=== PATIENT | male | born 1930 | race Caucasian/White ===

== ENCOUNTER 2018-04-08 16:24 | Inpatient (IN) | payer OTHER ==
[~2018-04-08] VITALS: Ht 177.8 cm; Wt 61.2 kg
[2018-04-08] MEDS ORDERED: EPOE3000 SQ (17:05)
[2018-04-08] MEDS ORDERED: LEVE100S GT (17:05)
[2018-04-08] MEDS ORDERED: HYDR-4077 GT (17:05)
[2018-04-08] MEDS ORDERED: VIT1TABL44 GT (17:05)
[2018-04-08] MEDS ORDERED: BLOO-668 IN (17:05)
[2018-04-08] MEDS ORDERED: SEVE0.8P3 GT (17:05)
[2018-04-08] MEDS ORDERED: CLON0.1T GT (17:05)
[2018-04-08] MEDS ORDERED: AMIN30LI4 GT (17:05)
[2018-04-08] MEDS ORDERED: FERR300L GT (17:05)
[2018-04-08] MEDS ORDERED: LEVO200T8 GT (17:05)
[2018-04-08] MEDS ORDERED: LOSA50TA21 GT (17:05)
[2018-04-08] MEDS ORDERED: OMEP20CA10 GT (17:05)
[2018-04-08] MEDS ORDERED: CARV6.252 GT (17:05)
[2018-04-08] MEDS ORDERED: DOCU50LI GT (17:05)
[2018-04-08] MEDS ORDERED: HYDR10SY16 GT (17:05)
[2018-04-08] MEDS ORDERED: POLY15DR40 EACHEYE (17:05)
[2018-04-08] MEDS ORDERED: INSU100V7 SQ (17:05)
[2018-04-08] MEDS ORDERED: NUT.237L67 GT (17:08)
[2018-04-08] MEDS ORDERED: INSU100V28 SQ (17:08)
[2018-04-08] MEDS ORDERED: IPRA3AMP23 IH ×2 (17:08)
[2018-04-08] MEDS ORDERED: TRAM50TA2 GT (17:10)
[2018-04-08] MEDS ORDERED: ACET650S26 GT (17:10)
[2018-04-08] MEDS ORDERED: ZINC220C8 GT (17:10)
[2018-04-08 17:18] LABS: BASOPHILS % (AUTO) 0.5 % (0.0-2.0); EOSINOPHILS % (AUTO) 16.1 % (0.0-6.0); HEMATOCRIT 40 % (39-51); HEMOGLOBIN 12.7 g/dL (13.5-17.5); LYMPHOCYTES # (AUTO) 0.9 /CMM (0.8-4.8); LYMPHOCYTES % (AUTO) 9.5 % (20.0-44.0); MEAN CORPUSCULAR HEMOGLOBIN 30 PG (26.0-33.0); MEAN CORPUSCULAR HGB CONC 32 g/dl (31.0-36.0); MEAN CORPUSCULAR VOLUME 95 fL (80-96); MONOCYTES # (AUTO) 0.8 /CMM (0.1-1.30); MONOCYTES % (AUTO) 8.3 % (2.0-12.0); NEUTROPHILS # (AUTO) 5.9 /CMM (1.8-8.9); NEUTROPHILS % (AUTO) 65.6 % (43.0-81.0); PLATELET COUNT (AUTO) 243 /CMM (150-450); RDW COEFFICIENT OF VARIATION 17.6 (11.5-15.0); RED BLOOD CELL COUNT(AUTO) 4.22 MIL/uL (4.5-6.0); WHITE BLOOD COUNT (AUTO) 9.1 K/uL (4.3-11.0)
[2018-04-08 17:28] LABS: CALCIUM, SERUM 8.5 mg/dL (8.5-10.1); CARBON DIOXIDE 27 mmol/L (21-32); CHLORIDE 100 mmol/L (98-107); CREATININE 2.9 mg/dL (0.6-1.3); GLUCOSE 121 mg/dL (74-106); POTASSIUM 3.8 mmol/L (3.5-5.1); SODIUM SERUM 135 mmol/L (136-145); UREA NITROGEN, BLOOD 32 mg/dL (7-18)
[2018-04-08 17:32] LABS: INR 0.95 (0.85-1.15)
[2018-04-08 19:19] VITALS: BP 192/78
[2018-04-08 20:00] VITALS: BP 159/60
[2018-04-08] MEDS ORDERED: EPOETIN ALFA (2000 UNIT) 2,000 UNIT/ML VIAL IV PRN (20:30)
[2018-04-08] MEDS ORDERED: ACETAMINOPHEN 650 MG/20.3 ML UDC GT PRN (20:30)
[2018-04-08] MEDS ORDERED: NEPRO VAN 237 ML CAN GT SCH (20:30)
[2018-04-08] MEDS ORDERED: MISCELLANEOUS MED 1 EA EA XX ONE ×2 (20:30)
[2018-04-08] MEDS ORDERED: EPOETIN ALFA (2000 UNIT) 2,000 UNIT/ML VIAL SQ PRN (20:54)
[2018-04-08] MEDS ORDERED: BLOOD SUGAR DIAGNOSTIC 1 EACH STRIP IN SCH (21:00)
[2018-04-08] MEDS ORDERED: INSULIN REGULAR, HUMAN 100 UNIT/ML 3 ML VIAL SQ PRN (21:00)
[2018-04-08] MEDS ORDERED: ALBUTEROL FS 2.5 MG/0.5 ML VIAL.NEB NEB PRN (21:00)
[2018-04-08] MEDS: DOCUSATE SODIUM LIQ 100 MG/10 ML UDC GT SCH (21:00)
[2018-04-08] MEDS ORDERED: DEXTROSE 50%-WATER 50 ML DISP.SYRIN IV PRN (21:00)
[2018-04-08] MEDS ORDERED: IPRATROPIUM NEB FS 0.5 MG/2.5 ML AMPUL.NEB NEB PRN (21:00)
[2018-04-08] MEDS: hydrOXYzine HCL SYRUP 10 MG/5 ML UDC GT PRN (21:09)
[2018-04-08] MEDS: POLYVINYL ALCOHOL 15 ML BOTTLE EACHEYE SCH (21:09)
[2018-04-08] MEDS: TRAMADOL HCL 50 MG TABLET GT PRN (21:10)
[2018-04-08] MEDS: LEVETIRACETAM SOL (5 ML) 100 MG/ML UDC GT SCH (21:10)
[2018-04-08] MEDS: FERROUS SULFATE UDC 300 MG/5 ML UDC GT SCH (21:10)
[2018-04-08] MEDS: hydrALAZINE HCL 50 MG TABLET GT SCH (21:12)
[2018-04-08] MEDS: LOSARTAN POTASSIUM 50 MG TABLET GT SCH (21:13)
[2018-04-08] MEDS: INSULIN GLARGINE, 100 UNIT/ML CARTRIDGE SQ SCH (21:23)
[2018-04-08] MEDS: IV 1/2NS 1000 ML 1,000 ML IV PRN (21:25)
[2018-04-09] VITALS: BP 141/78
[2018-04-09] MEDS: BLOOD SUGAR DIAGNOSTIC 1 EACH STRIP IN SCH ×5 (00:03→23:22)
[2018-04-09] MEDS: CLONIDINE HCL 0.1 MG TABLET GT SCH ×5 (00:06→23:36)
[2018-04-09] MEDS: SEVELAMER CARBONATE 0.8 GM POWD.PACK GT SCH ×4 (00:06→23:35)
[2018-04-09] MEDS: IPRATROPIUM NEB FS 0.5 MG/2.5 ML AMPUL.NEB NEB SCH ×4 (01:42→19:48)
[2018-04-09] MEDS: ALBUTEROL FS 2.5 MG/0.5 ML VIAL.NEB NEB SCH ×4 (01:42→19:48)
[2018-04-09] MEDS: hydrOXYzine HCL SYRUP 10 MG/5 ML UDC GT PRN (03:30)
[2018-04-09 04:00] VITALS: BP 113/71
[2018-04-09] MEDS: hydrALAZINE HCL 50 MG TABLET GT SCH ×3 (05:00→21:40)
[2018-04-09 06:36] LABS: BASOPHILS # (AUTO) 0.1 /CMM (0.0-0.2); BASOPHILS % (AUTO) 0.9 % (0.0-2.0); HEMATOCRIT 37 % (39-51); HEMOGLOBIN 11.8 g/dL (13.5-17.5); LYMPHOCYTES # (AUTO) 1.3 /CMM (0.8-4.8); LYMPHOCYTES % (AUTO) 17.8 % (20.0-44.0); MEAN CORPUSCULAR HEMOGLOBIN 31 PG (26.0-33.0); MEAN CORPUSCULAR HGB CONC 32 g/dl (31.0-36.0); MEAN CORPUSCULAR VOLUME 97 fL (80-96); MONOCYTES # (AUTO) 0.6 /CMM (0.1-1.30); MONOCYTES % (AUTO) 8.4 % (2.0-12.0); NEUTROPHILS # (AUTO) 3.4 /CMM (1.8-8.9); NEUTROPHILS % (AUTO) 46.7 % (43.0-81.0); PLATELET COUNT (AUTO) 217 /CMM (150-450); RDW COEFFICIENT OF VARIATION 18.6 (11.5-15.0); RED BLOOD CELL COUNT(AUTO) 3.79 MIL/uL (4.5-6.0); WHITE BLOOD COUNT (AUTO) 7.3 K/uL (4.3-11.0)
[2018-04-09 06:40] LABS: INR 0.99 (0.87-1.13)
[2018-04-09 06:42] LABS: EOSINOPHILS % (AUTO) 26.2 % (0.0-6.0)
[2018-04-09 06:43] LABS: CALCIUM, SERUM 9.1 mg/dL (8.5-10.1); CARBON DIOXIDE 24 mmol/L (21-32); CHLORIDE 101 mmol/L (98-107); CREATININE 3.6 mg/dL (0.6-1.3); GLUCOSE 106 mg/dL (74-106); POTASSIUM 4.4 mmol/L (3.5-5.1); SODIUM SERUM 137 mmol/L (136-145); UREA NITROGEN, BLOOD 40 mg/dL (7-18)
[2018-04-09 08:00] VITALS: BP 188/63
[2018-04-09 08:24] LABS: EOSINOPHILS % (MANUAL) 24 % (0-4); LYMPHOCYTES % (MANUAL) 18 % (16-48); MONOCYTES % (MANUAL) 3 % (0-11.0); NEUTROPHILS % (MANUAL) 55 (42-76)
[2018-04-09] MEDS: ZINC SULFATE 220 MG CAPSULE GT SCH (09:26)
[2018-04-09] MEDS: LEVETIRACETAM SOL (5 ML) 100 MG/ML UDC GT SCH ×2 (09:26→21:40)
[2018-04-09] MEDS: LOSARTAN POTASSIUM 50 MG TABLET GT SCH ×2 (09:27→21:40)
[2018-04-09] MEDS: FERROUS SULFATE UDC 300 MG/5 ML UDC GT SCH ×2 (09:27→17:27)
[2018-04-09] MEDS: VIT B CMPLX 3/FA/VIT C/BIOTIN 1 TAB TABLET GT SCH (09:27)
[2018-04-09] MEDS: DOCUSATE SODIUM LIQ 100 MG/10 ML UDC GT SCH ×2 (09:27→17:27)
[2018-04-09] MEDS: CARVEDILOL 6.25 MG TABLET GT SCH ×2 (09:28→17:30)
[2018-04-09] MEDS: PROSOURCE / PROSTAT (PYXIS) 30 ML UDC GT SCH (09:28)
[2018-04-09] MEDS: POLYVINYL ALCOHOL 15 ML BOTTLE EACHEYE SCH ×3 (09:29→21:43)
[2018-04-09] MEDS ORDERED: PANTOPRAZOLE 40 MG/PACK PACK GT SCH (11:00)
[2018-04-09 12:00] VITALS: BP 147/59
[2018-04-09] MEDS: LEVOTHYROXINE SODIUM 100 MCG TABLET GT SCH (12:36)
[2018-04-09 16:00] VITALS: BP 125/44
[2018-04-09] MEDS: IV 1/2NS 1000 ML 1,000 ML IV PRN (17:03)
[2018-04-09] MEDS: INSULIN REGULAR, HUMAN 100 UNIT/ML 3 ML VIAL SQ PRN (18:05)
[2018-04-09] MEDS: PANTOPRAZOLE 40 MG VIAL IV SCH (18:10)
[2018-04-09 20:00] VITALS: BP 120/51
[2018-04-09 20:06] LABS: HEMOGLOBIN 10.4 g/dL (13.5-17.5)
[2018-04-09] MEDS: INSULIN GLARGINE, 100 UNIT/ML CARTRIDGE SQ SCH (21:43)
[2018-04-10] VITALS (7 sets, daily range): BP systolic 121–158; BP diastolic 51–73
[2018-04-10] MEDS: hydrOXYzine HCL SYRUP 10 MG/5 ML UDC GT PRN (01:25)
[2018-04-10] MEDS: ALBUTEROL FS 2.5 MG/0.5 ML VIAL.NEB NEB SCH ×4 (01:36→19:02)
[2018-04-10] MEDS: IPRATROPIUM NEB FS 0.5 MG/2.5 ML AMPUL.NEB NEB SCH ×4 (01:36→19:02)
[2018-04-10] MEDS: CLONIDINE HCL 0.1 MG TABLET GT SCH ×3 (05:24→18:04)
[2018-04-10] MEDS: PANTOPRAZOLE 40 MG VIAL IV SCH (05:24)
[2018-04-10] MEDS: hydrALAZINE HCL 50 MG TABLET GT SCH ×3 (05:24→21:00)
[2018-04-10] MEDS: BLOOD SUGAR DIAGNOSTIC 1 EACH STRIP IN SCH ×3 (05:26→18:00)
[2018-04-10] MEDS ORDERED: GLUCERNA 1.2 1,000 ML BOTTLE NG PRN (09:30)
[2018-04-10] MEDS: VIT B CMPLX 3/FA/VIT C/BIOTIN 1 TAB TABLET GT SCH (10:09)
[2018-04-10] MEDS: DOCUSATE SODIUM LIQ 100 MG/10 ML UDC GT SCH ×2 (10:09→18:04)
[2018-04-10] MEDS: SEVELAMER CARBONATE 0.8 GM POWD.PACK GT SCH ×2 (10:09→18:05)
[2018-04-10] MEDS: FERROUS SULFATE UDC 300 MG/5 ML UDC GT SCH ×2 (10:09→18:04)
[2018-04-10] MEDS: POLYVINYL ALCOHOL 15 ML BOTTLE EACHEYE SCH ×3 (10:09→21:47)
[2018-04-10] MEDS: LEVETIRACETAM SOL (5 ML) 100 MG/ML UDC GT SCH (10:09)
[2018-04-10] MEDS: LOSARTAN POTASSIUM 50 MG TABLET GT SCH ×2 (10:10→21:00)
[2018-04-10] MEDS: CARVEDILOL 6.25 MG TABLET GT SCH ×2 (10:11→18:05)
[2018-04-10] MEDS: ZINC SULFATE 220 MG CAPSULE GT SCH (10:11)
[2018-04-10] MEDS: PROSOURCE / PROSTAT (PYXIS) 30 ML UDC GT SCH (10:31)
[2018-04-10] MEDS: LEVOTHYROXINE SODIUM 100 MCG TABLET GT SCH (12:35)
[2018-04-10] MEDS: IV 1/2NS 1000 ML 1,000 ML IV PRN (12:47)
[2018-04-10] MEDS: INSULIN REGULAR, HUMAN 100 UNIT/ML 3 ML VIAL SQ PRN ×2 (13:01→19:23)
[2018-04-10] MEDS ORDERED: NEPRO 1,000 ML BOTTLE GT PRN (15:30)
[2018-04-10] MEDS ORDERED: PEG 3350/NA SULF,BICARB,CL/KCL 4,000 ML BOTTLE PO ONE (18:00)
[2018-04-10] MEDS: INSULIN GLARGINE, 100 UNIT/ML CARTRIDGE SQ SCH (21:54)
[2018-04-10] MEDS ORDERED: LEVETIRACETAM (500MG) 500 MG/5 ML VIAL IV ONE (22:06)
[2018-04-10] MEDS: LEVETIRACETAM (500MG) 500 MG in IV NS 0.9% 100 ML IV SCH (22:15)
[2018-04-11] VITALS: BP 168/47
[2018-04-11] MEDS ORDERED: CLONIDINE HCL 0.1MG/24H PTWK 1 EA PATCH TD SCH ×2 (00:30→08:52)
[2018-04-11] MEDS: ALBUTEROL FS 2.5 MG/0.5 ML VIAL.NEB NEB SCH ×4 (02:02→19:47)
[2018-04-11] MEDS: IPRATROPIUM NEB FS 0.5 MG/2.5 ML AMPUL.NEB NEB SCH ×4 (02:02→19:47)
[2018-04-11 04:00] VITALS: BP 146/78
[2018-04-11] MEDS: hydrALAZINE HCL 50 MG TABLET GT SCH ×3 (05:00→21:32)
[2018-04-11] MEDS: BLOOD SUGAR DIAGNOSTIC 1 EACH STRIP IN SCH ×5 (05:37→23:30)
[2018-04-11 07:50] LABS: BASOPHILS # (AUTO) 0.1 /CMM (0.0-0.2); BASOPHILS % (AUTO) 1.9 % (0.0-2.0); EOSINOPHILS % (AUTO) 24.1 % (0.0-6.0); HEMATOCRIT 33 % (39-51); HEMOGLOBIN 10.5 g/dL (13.5-17.5); LYMPHOCYTES # (AUTO) 0.8 /CMM (0.8-4.8); LYMPHOCYTES % (AUTO) 10.8 % (20.0-44.0); MEAN CORPUSCULAR HEMOGLOBIN 31 PG (26.0-33.0); MEAN CORPUSCULAR HGB CONC 32 g/dl (31.0-36.0); MEAN CORPUSCULAR VOLUME 96 fL (80-96); MONOCYTES # (AUTO) 0.6 /CMM (0.1-1.30); MONOCYTES % (AUTO) 8.2 % (2.0-12.0); PLATELET COUNT (AUTO) 153 /CMM (150-450); RDW COEFFICIENT OF VARIATION 17.4 (11.5-15.0); RED BLOOD CELL COUNT(AUTO) 3.38 MIL/uL (4.5-6.0); WHITE BLOOD COUNT (AUTO) 7.3 K/uL (4.3-11.0)
[2018-04-11 07:54] LABS: CALCIUM, SERUM 8.7 mg/dL (8.5-10.1); CARBON DIOXIDE 19 mmol/L (21-32); CHLORIDE 101 mmol/L (98-107); CREATININE 4.6 mg/dL (0.6-1.3); GLUCOSE 100 mg/dL (74-106); SODIUM SERUM 135 mmol/L (136-145); UREA NITROGEN, BLOOD 39 mg/dL (7-18)
[2018-04-11 08:00] VITALS: BP 183/81
[2018-04-11] MEDS: ZINC SULFATE 220 MG CAPSULE GT SCH (08:39)
[2018-04-11] MEDS: PANTOPRAZOLE 40 MG VIAL IV SCH (08:39)
[2018-04-11] MEDS: DOCUSATE SODIUM LIQ 100 MG/10 ML UDC GT SCH ×2 (08:39→17:00)
[2018-04-11] MEDS: FERROUS SULFATE UDC 300 MG/5 ML UDC GT SCH ×2 (08:39→17:38)
[2018-04-11] MEDS: SEVELAMER CARBONATE 0.8 GM POWD.PACK GT SCH ×3 (08:39→17:38)
[2018-04-11] MEDS: VIT B CMPLX 3/FA/VIT C/BIOTIN 1 TAB TABLET GT SCH (08:39)
[2018-04-11] MEDS: LEVETIRACETAM (500MG) 500 MG in IV NS 0.9% 100 ML IV SCH ×2 (08:39→21:32)
[2018-04-11] MEDS: LOSARTAN POTASSIUM 50 MG TABLET GT SCH ×2 (08:40→21:32)
[2018-04-11] MEDS: CARVEDILOL 6.25 MG TABLET GT SCH ×2 (08:40→17:45)
[2018-04-11] MEDS: PROSOURCE / PROSTAT (PYXIS) 30 ML UDC GT SCH (08:40)
[2018-04-11] MEDS: TRAMADOL HCL 50 MG TABLET GT PRN ×2 (08:43→17:38)
[2018-04-11] MEDS: POLYVINYL ALCOHOL 15 ML BOTTLE EACHEYE SCH ×3 (08:44→21:50)
[2018-04-11 09:11] LABS: BAND % (MANUAL) 1 % (0.0-5.0); EOSINOPHILS % (MANUAL) 25 % (0-4); LYMPHOCYTES % (MANUAL) 12 % (16-48); MONOCYTES % (MANUAL) 7 % (0-11.0); NEUTROPHILS % (MANUAL) 55 (42-76)
[2018-04-11] MEDS: IV 1/2NS 1000 ML 1,000 ML IV PRN ×2 (10:32→21:50)
[2018-04-11] MEDS: LEVOTHYROXINE SODIUM 100 MCG TABLET GT SCH (10:34)
[2018-04-11] MEDS ORDERED: EPOETIN ALFA (10,000 UNIT) 10,000 UNIT/ML VIAL SQ ONE (11:00)
[2018-04-11 12:00] VITALS: BP_SYST 183; BP_DIAS 178; BP_DIAS 78
[2018-04-11] MEDS: hydrOXYzine HCL SYRUP 10 MG/5 ML UDC GT PRN ×2 (15:04→17:38)
[2018-04-11 16:00] VITALS: BP_SYST 150; BP_SYST 183; BP_DIAS 77; BP_DIAS 80
[2018-04-11 20:00] VITALS: BP 150/30
[2018-04-11] MEDS: INSULIN GLARGINE, 100 UNIT/ML CARTRIDGE SQ SCH (22:00)
[2018-04-11] MEDS: DEXTROSE 50%-WATER 50 ML DISP.SYRIN IV PRN (22:08)
[2018-04-12] VITALS (8 sets, daily range): BP systolic 136–188; BP diastolic 23–62
[2018-04-12] MEDS: hydrOXYzine HCL SYRUP 10 MG/5 ML UDC GT PRN ×2 (00:18→09:07)
[2018-04-12] MEDS: SEVELAMER CARBONATE 0.8 GM POWD.PACK GT SCH ×4 (00:18→23:41)
[2018-04-12] MEDS ORDERED: IV D5/0.45 NACL 1,000 ML IV PRN ×2 (00:34→07:00)
[2018-04-12] MEDS: IPRATROPIUM NEB FS 0.5 MG/2.5 ML AMPUL.NEB NEB SCH ×4 (01:13→18:55)
[2018-04-12] MEDS: ALBUTEROL FS 2.5 MG/0.5 ML VIAL.NEB NEB SCH ×4 (01:13→18:55)
[2018-04-12] MEDS: NEPRO 1,000 ML BOTTLE GT SCH (02:01)
[2018-04-12] MEDS: hydrALAZINE HCL 50 MG TABLET GT SCH ×3 (05:12→20:56)
[2018-04-12] MEDS: DEXTROSE 50%-WATER 50 ML DISP.SYRIN IV PRN (05:33)
[2018-04-12] MEDS: BLOOD SUGAR DIAGNOSTIC 1 EACH STRIP IN SCH ×4 (05:33→23:33)
[2018-04-12 06:51] LABS: CALCIUM, SERUM 8.6 mg/dL (8.5-10.1); CARBON DIOXIDE 27 mmol/L (21-32); CHLORIDE 102 mmol/L (98-107); CREATININE 3.1 mg/dL (0.6-1.3); GLUCOSE 161 mg/dL (74-106); POTASSIUM 3.8 mmol/L (3.5-5.1); SODIUM SERUM 136 mmol/L (136-145); UREA NITROGEN, BLOOD 22 mg/dL (7-18)
[2018-04-12 06:55] LABS: BASOPHILS % (AUTO) 0.6 % (0.0-2.0); HEMATOCRIT 33 % (39-51); HEMOGLOBIN 10.5 g/dL (13.5-17.5); LYMPHOCYTES # (AUTO) 0.7 /CMM (0.8-4.8); LYMPHOCYTES % (AUTO) 11.9 % (20.0-44.0); MEAN CORPUSCULAR HEMOGLOBIN 31 PG (26.0-33.0); MEAN CORPUSCULAR HGB CONC 32 g/dl (31.0-36.0); MEAN CORPUSCULAR VOLUME 97 fL (80-96); MONOCYTES # (AUTO) 0.7 /CMM (0.1-1.30); MONOCYTES % (AUTO) 11.5 % (2.0-12.0); NEUTROPHILS # (AUTO) 2.8 /CMM (1.8-8.9); NEUTROPHILS % (AUTO) 49.8 % (43.0-81.0); PLATELET COUNT (AUTO) 148 /CMM (150-450); RDW COEFFICIENT OF VARIATION 17.6 (11.5-15.0); RED BLOOD CELL COUNT(AUTO) 3.42 MIL/uL (4.5-6.0); WHITE BLOOD COUNT (AUTO) 5.7 K/uL (4.3-11.0)
[2018-04-12 07:12] LABS: EOSINOPHILS % (AUTO) 26.2 % (0.0-6.0)
[2018-04-12 07:47] LABS: EOSINOPHILS % (MANUAL) 28 % (0-4); LYMPHOCYTES % (MANUAL) 1 % (16-48); MONOCYTES % (MANUAL) 12 % (0-11.0); NEUTROPHILS % (MANUAL) 59 (42-76)
[2018-04-12] MEDS: LEVETIRACETAM SOL (5 ML) 100 MG/ML UDC GT SCH ×2 (09:04→20:55)
[2018-04-12] MEDS: VIT B CMPLX 3/FA/VIT C/BIOTIN 1 TAB TABLET GT SCH (09:04)
[2018-04-12] MEDS: FERROUS SULFATE UDC 300 MG/5 ML UDC GT SCH ×2 (09:04→17:24)
[2018-04-12] MEDS: DOCUSATE SODIUM LIQ 100 MG/10 ML UDC GT SCH ×2 (09:04→17:24)
[2018-04-12] MEDS: PANTOPRAZOLE 40 MG VIAL IV SCH (09:04)
[2018-04-12] MEDS: LOSARTAN POTASSIUM 50 MG TABLET GT SCH ×2 (09:05→20:56)
[2018-04-12] MEDS: PROSOURCE / PROSTAT (PYXIS) 30 ML UDC GT SCH (09:05)
[2018-04-12] MEDS: CARVEDILOL 6.25 MG TABLET GT SCH ×2 (09:05→17:25)
[2018-04-12] MEDS: ZINC SULFATE 220 MG CAPSULE GT SCH (09:05)
[2018-04-12] MEDS: POLYVINYL ALCOHOL 15 ML BOTTLE EACHEYE SCH ×3 (09:06→21:46)
[2018-04-12] MEDS: LEVOTHYROXINE SODIUM 100 MCG TABLET GT SCH (12:30)
[2018-04-12] MEDS: INSULIN REGULAR, HUMAN 100 UNIT/ML 3 ML VIAL SQ PRN (23:37)
[2018-04-13] VITALS: BP 209/73
[2018-04-13] MEDS: TRAMADOL HCL 50 MG TABLET GT PRN (00:24)
[2018-04-13] MEDS: hydrOXYzine HCL SYRUP 10 MG/5 ML UDC GT PRN ×2 (00:24→08:47)
[2018-04-13 01:21] VITALS: BP 148/44
[2018-04-13] MEDS: ALBUTEROL FS 2.5 MG/0.5 ML VIAL.NEB NEB SCH ×3 (02:09→14:03)
[2018-04-13] MEDS: IPRATROPIUM NEB FS 0.5 MG/2.5 ML AMPUL.NEB NEB SCH ×3 (02:09→14:03)
[2018-04-13 04:00] VITALS: BP 180/62
[2018-04-13] MEDS: hydrALAZINE HCL 50 MG TABLET GT SCH ×2 (04:32→15:07)
[2018-04-13] MEDS: INSULIN REGULAR, HUMAN 100 UNIT/ML 3 ML VIAL SQ PRN (05:59)
[2018-04-13] MEDS: BLOOD SUGAR DIAGNOSTIC 1 EACH STRIP IN SCH ×2 (05:59→12:04)
[2018-04-13] MEDS: NEPRO 1,000 ML BOTTLE GT SCH ×2 (06:15→13:24)
[2018-04-13 06:40] LABS: BASOPHILS % (AUTO) 0.5 % (0.0-2.0); EOSINOPHILS % (AUTO) 24.7 % (0.0-6.0); HEMATOCRIT 32 % (39-51); HEMOGLOBIN 10.1 g/dL (13.5-17.5); LYMPHOCYTES # (AUTO) 1.2 /CMM (0.8-4.8); LYMPHOCYTES % (AUTO) 16.1 % (20.0-44.0); MEAN CORPUSCULAR HEMOGLOBIN 31 PG (26.0-33.0); MEAN CORPUSCULAR HGB CONC 32 g/dl (31.0-36.0); MEAN CORPUSCULAR VOLUME 97 fL (80-96); MONOCYTES # (AUTO) 0.8 /CMM (0.1-1.30); MONOCYTES % (AUTO) 10.5 % (2.0-12.0); NEUTROPHILS # (AUTO) 3.7 /CMM (1.8-8.9); NEUTROPHILS % (AUTO) 48.2 % (43.0-81.0); PLATELET COUNT (AUTO) 152 /CMM (150-450); RDW COEFFICIENT OF VARIATION 16.9 (11.5-15.0); RED BLOOD CELL COUNT(AUTO) 3.29 MIL/uL (4.5-6.0); WHITE BLOOD COUNT (AUTO) 7.6 K/uL (4.3-11.0)
[2018-04-13 06:57] LABS: CARBON DIOXIDE 28 mmol/L (21-32); CHLORIDE 103 mmol/L (98-107); CREATININE 4.4 mg/dL (0.6-1.3); GLUCOSE 127 mg/dL (74-106); POTASSIUM 3.9 mmol/L (3.5-5.1); SODIUM SERUM 141 mmol/L (136-145); UREA NITROGEN, BLOOD 33 mg/dL (7-18)
[2018-04-13 08:00] VITALS: BP 178/77
[2018-04-13 08:06] LABS: BAND % (MANUAL) 1 % (0.0-5.0); EOSINOPHILS % (MANUAL) 28 % (0-4); LYMPHOCYTES % (MANUAL) 16 % (16-48); MONOCYTES % (MANUAL) 7 % (0-11.0); NEUTROPHILS % (MANUAL) 48 (42-76)
[2018-04-13] MEDS ORDERED: IV D5/0.45 NACL 1,000 ML IV ONE (08:30)
[2018-04-13] MEDS: ZINC SULFATE 220 MG CAPSULE GT SCH (08:45)
[2018-04-13] MEDS: DOCUSATE SODIUM LIQ 100 MG/10 ML UDC GT SCH (08:46)
[2018-04-13] MEDS: FERROUS SULFATE UDC 300 MG/5 ML UDC GT SCH (08:46)
[2018-04-13] MEDS: SEVELAMER CARBONATE 0.8 GM POWD.PACK GT SCH (08:46)
[2018-04-13] MEDS: PANTOPRAZOLE 40 MG VIAL IV SCH (08:46)
[2018-04-13] MEDS: LEVETIRACETAM SOL (5 ML) 100 MG/ML UDC GT SCH (08:46)
[2018-04-13] MEDS: VIT B CMPLX 3/FA/VIT C/BIOTIN 1 TAB TABLET GT SCH (08:46)
[2018-04-13] MEDS: POLYVINYL ALCOHOL 15 ML BOTTLE EACHEYE SCH (08:51)
[2018-04-13] MEDS: PROSOURCE / PROSTAT (PYXIS) 30 ML UDC GT SCH (08:51)
[2018-04-13] MEDS: LOSARTAN POTASSIUM 50 MG TABLET GT SCH (08:52)
[2018-04-13] MEDS: CARVEDILOL 6.25 MG TABLET GT SCH (08:52)
[2018-04-13 12:00] VITALS: BP 140/55
[2018-04-13] MEDS ORDERED: hydrOXYzine HCL SYRUP 10 MG/5 ML UDC GT PRN (12:00)
[2018-04-13] MEDS ORDERED: LORAZEPAM 1 MG TABLET GT PRN (12:00)
[2018-04-13] MEDS: LEVOTHYROXINE SODIUM 100 MCG TABLET GT SCH (12:26)
[2018-04-13 15:07] VITALS: BP 140/55
== END 2018-04-13 15:32 | DRG 314 ==
LOC: ER 16:29 → TELE1 18:16
PROVIDERS: ADMIT Internal Medicine; ATTEND Internal Medicine
PROC: 5A1955Z Respiratory Ventilation, Greater than 96 Consecutive Hours (ICD-10-PCS; principal; 2018-04-08)
PROC: 5A1D70Z Performance of Urinary Filtration, Intermittent, Less than 6 Hours Per Day (ICD-10-PCS; 2018-04-09)
PROC: 5A1D70Z Performance of Urinary Filtration, Intermittent, Less than 6 Hours Per Day (ICD-10-PCS; 2018-04-11)
PROC: 5A1D70Z Performance of Urinary Filtration, Intermittent, Less than 6 Hours Per Day (ICD-10-PCS; 2018-04-13)
DX: T82.41XA Breakdown (mechanical) of vascular dialysis catheter, initial encounter (principal); N18.6 End stage renal disease; G93.40 Encephalopathy, unspecified; I12.0 Hypertensive chronic kidney disease with stage 5 chronic kidney disease or end stage renal disease; J96.10 Chronic respiratory failure, unspecified whether with hypoxia or hypercapnia; Z99.11 Dependence on respirator [ventilator] status; K92.2 Gastrointestinal hemorrhage, unspecified; Y83.9 Surgical procedure, unspecified as the cause of abnormal reaction of the patient, or of later complication, without mention of misadventure at the time of the procedure; E03.9 Hypothyroidism, unspecified; K21.9 Gastro-esophageal reflux disease without esophagitis; Z86.73 Personal history of transient ischemic attack (TIA), and cerebral infarction without residual deficits; Z93.0 Tracheostomy status; Z93.1 Gastrostomy status; Z99.2 Dependence on renal dialysis; E11.22 Type 2 diabetes mellitus with diabetic chronic kidney disease; Y71.2 Prosthetic and other implants, materials and accessory cardiovascular devices associated with adverse incidents; Y92.129 Unspecified place in nursing home as the place of occurrence of the external cause; Z79.4 Long term (current) use of insulin; D64.9 Anemia, unspecified; R93.5 Abnormal findings on diagnostic imaging of other abdominal regions, including retroperitoneum; E11.649 Type 2 diabetes mellitus with hypoglycemia without coma
CPT/HCPCS: 31720; 36415; 71045-TC; 80048-TC; 82378; 82962-TC; 85025-TC; 85027-TC; 85730-TC; 87081-TC; 90935-TC; 94003-TC; 94760-TC; 94762-TC; 99082-TC; A4606; A6403; C9113; J0885; J1815; J1953; J3490; J7030; Q0177; Z7610